=== PATIENT | female | born 1980 | race Hispanic/Latino ===

== ENCOUNTER 2022-01-07 11:19 | Outpatient (CLI) | payer MEDICAID ==
--- NOTE | 2022-01-09 09:14 | Mammography Report ---
DIGITAL SCREENING MAMMOGRAM WITH CAD, 01/07/2022 CLINICAL INFORMATION / INDICATION: Routine screening mammography. TECHNIQUE: Digital bilateral 2D mammography was obtained in the craniocaudal and mediolateral obliqu e projections. This examination was interpreted with the benefit of Computer-Aided Detection analysis . COMPARISON: None available. Patient states that she forgot the location of her prior mammogram. FINDINGS: Breast Density: The breasts are extremely dense, which lowers the sensitivity of mammography. No dominant mass, suspicious calcifications, or architectural distortion in the left breast. There is a 4.4 cm obscured oval mass seen in the 3:00 position of the right breast located approximat eren 3 cm from the nipple which requires further evaluation. IMPRESSION: 1. An oval obscured mass in the right breast requires further evaluation with targeted ultrasound and additional views if needed. Follow up recommendation: Ultrasound BI-RADS Category 0: INCOMPLETE. Needs additional imaging evaluation and/or prior mammograms for chris aranda. A "normal" or negative report should not discourage follow up or biopsy of a clinically significant f inding. A written summary of these findings will be mailed to the patient. The patient will be entered into a mammography reporting system which will generate a reminder letter for the patient's next appointmen t at the appropriate interval. [employer] recommends yearly mammograms starting at age 40 and continuing as l [place] as a woman is in good health. Breast MRI is recommended for women with an approximate 20-25% or greater lifetime risk of breast cancer, including women with a strong family history of breast or ova charlie cancer or who have been treated for Hodgkin's disease. Signer Name: Consuelo Salcedo MD Signed: 01/09/2022 9:10 AM Workstation Name: [employer]
== END 2022-01-07 11:20 | disposition home or self-care (01) ==
LOC: SPVWC 11:19
PROVIDERS: ATTEND Obstetrics & Gynecology
DX: Z12.31 Encounter for screening mammogram for malignant neoplasm of breast (principal); N63.12 Unspecified lump in the right breast, upper inner quadrant
CPT/HCPCS: 77067

== ENCOUNTER 2022-01-23 10:37 | Outpatient (CLI) | payer MEDICAID ==
--- NOTE | 2022-01-23 11:41 | Ultrasound Report ---
ULTRASOUND BREAST RIGHT LIMITED, 01/23/2022 CLINICAL INFORMATION / INDICATION: N63.12. Patient presents as a callback from screening mammogram fo r further evaluation of an oval mass in the right breast. Patient states that she has had a prior fib roadenoma biopsied in the right breast, but she indicates that this was more lateral in the breast, n ot the area in concern on the current examination. TECHNIQUE: Targeted ultrasound evaluation was performed of the area of interest. COMPARISON: Prior mammogram 01/07/2022 FINDINGS: Corresponding with the mammographic finding, there is an oval circumscribed hypoechoic mass in the [facility] breast 3:00 position at the areolar edge, measuring up to 3.7 x 1.5 x 3.3 cm. The mass is paralle l. No internal vascularity is demonstrated. IMPRESSION: 1. An oval circumscribed hypoechoic mass corresponds with the mammographic finding and is considered low suspicion for malignancy, likely representing a fibroadenoma. Ultrasound-guided biopsy is recomme nded for confirmation. Follow up recommendation: Biopsy BI-RADS Category 4: SUSPICIOUS FOR MALIGNANCY. A normal or "negative" report should not preclude biopsy or follow-up of a clinically suspicious find ing. Signer Name: Consuelo Salcedo MD Signed: 01/23/2022 11:37 AM Workstation Name: [email or web address]
== END 2022-01-23 10:38 | disposition home or self-care (01) ==
LOC: US 10:37
PROVIDERS: ATTEND Obstetrics & Gynecology
DX: N63.12 Unspecified lump in the right breast, upper inner quadrant (principal); R92.8 Other abnormal and inconclusive findings on diagnostic imaging of breast